=== PATIENT | male | born 1980 | race Caucasian/White ===

== ENCOUNTER 2020-06-23 16:27 | Emergency (ER) | payer OTHER ==
--- NOTE | 2020-06-23 16:32 | PDOC ---
Rapid Medical Evaluation Chief Complaint: Rash Time Seen by Provider: 06/23/20 16:31 Medical Evaluation: 06/23/20 16:31 I have performed a brief in-person evaluation of this patient. CC: rash to penis PE: deferred Orders: nothing Patient will proceed to ED for further evaluation. Discharge Disposition - Diagnosis Rash of genital area - Referrals - Patient Instructions - Post Discharge Activity
[2020-06-23 16:38] VITALS: BP 166/101; PULSE 78; TEMP 96.7; BMI 29.6
--- NOTE | 2020-06-23 17:06 | PDOC ---
History of Present Illness - General Chief Complaint: Rash Stated Complaint: RASH Time Seen by Provider: 06/23/20 16:31 - History of Present Illness Initial Comments: 06/23/20 17:04 39-year-old male no comorbidities presents forPruritic rash on penis after unprotected intercourse with known partner 3 days ago no dysuria no concern for STDs. Past History - Medical History Allergies/Adverse Reactions: Allergies Allergy/AdvReac Type Severity Reaction Status Date / Time No Known Allergies Allergy Unverified 06/23/20 16:33 Home Medications: Ambulatory Orders Desonide 15 gm TP BID 3 Days #1 cream..g. 06/23/20 COPD: No - Psycho-Social/Smoking History Smoking History: Current every day smoker Have you smoked in the past 12 months: Yes Number of Cigarettes Smoked Daily: 5 Information on smoking cessation initiated: No - Substance Abuse Hx (Audit-C & DAST Scrn) How often the patient has a drink containing alcohol: Monthly or less Number of drinks the patient has on a typical day: 3 or 4 How often the patient has six or more drinks on one occasion: Never Score: In Men: 4 or > Positive; In Women: 3 or > Positive: 2 Screen Result (Pos requires Nsg. Audit-10AR): Negative In the last yr the pt used illegal drug/Rx for NonMed reason: No Score: Yes response is considered Positive: 0 Screen Result (Positive result requires Nsg. DAST-10): Negative Review of Systems - Review of Systems Constitutional: No: Fever : No: Burning, Dysuria, Discharge, Frequency, Flank Pain, Hematuria, Pain, Urgency Integumentary: Yes: Rash *Physical Exam - Vital Signs Last Vital Signs Temp Pulse Resp BP Pulse Ox 96.7 F L 78 18 166/101 H 100 06/23/20 16:31 06/23/20 16:31 06/23/20 16:31 06/23/20 16:31 06/23/20 16:31 Medical Decision Making - Medical Decision Making 06/23/20 17:05 Most likely a contact dermatitis. Patient admits to having non-lubricated intercourse which may have irritated his skin will provide a low potency steroid and have patient follow-up with dermatology I have reviewed the pathophysiology with the patient. They are in agreement with the treatment plan all questions were answered to their satisfaction. Understanding for follow-up without fail was also conveyed to the patient. Again they are in agreement. Discharge - Discharge Information Problems reviewed: Yes Clinical Impression/Diagnosis: Rash of genital area Condition: Stable Disposition: HOME - Admission No - Additional Discharge Information Prescriptions: Desonide 15 gm TP BID 3 Days #1 cream..g. - Follow up/Referral Referrals: Annelise Baker MD [Staff Physician] - - Patient Discharge Instructions Additional Instructions: Please use the steroid cream as directed and return to the emergency room for further issues. Without fail follow-up with dermatology in 1 to 2 days for further evaluation and treatment options. - Post Discharge Activity
[2020-06-23 17:31] LABS: URINE APPEARANCE CLEAR; URINE BILIRUBIN NEGATIVE (NEGATIVE); URINE COLOR YELLOW; URINE GLUCOSE (UA) NEGATIVE (NEGATIVE); URINE KETONE NEGATIVE (NEGATIVE); URINE LEUK ESTERASE NEGATIVE (NEGATIVE); URINE NITRITE NEGATIVE (NEGATIVE); URINE PROTEIN NEGATIVE (NEGATIVE)
== END 2020-06-23 17:34 | disposition home or self-care (01) ==
LOC: JERFT 16:27
DX: R21 Rash and other nonspecific skin eruption (principal)
CPT/HCPCS: 36415; 81003; 87086; 87491; 87591; 99284-25